=== PATIENT | male | born 1975 | race African-American/Black ===

== ENCOUNTER 2017-10-08 12:00 | Emergency (ER) | payer MEDICARE, OTHER ==
[~2017-10-08] VITALS: Ht 180.3 cm; Wt 90.5 kg
[~2017-10-08 12:00] MED LIST: BUPR100SR PO; CHOL200035 PO; CLON2 PO; DOCU250C91 PO; HYDR-3971 PO; HYDR25TA PO; KDUR20 PO; LISI-662 PO; LURA40 PO; OMEP20 PO; RANI150T7 PO; RISP2 PO; ZOLP10TA7 PO
[2017-10-08 13:44] VITALS: BP 138/88
== END 2017-10-08 15:19 | disposition home or self-care (01) ==
LOC: EMS 12:01
DX: M54.5 Low back pain (principal); M54.6 Pain in thoracic spine; G89.29 Other chronic pain; I10 Essential (primary) hypertension; F17.210 Nicotine dependence, cigarettes, uncomplicated
CPT/HCPCS: 99283

== ENCOUNTER 2020-02-09 09:36 | Emergency (ER) | payer MEDICARE, OTHER ==
[~2020-02-09] VITALS: Ht 177.8 cm; Wt 90.9 kg
[~2020-02-09 09:36] MED LIST changes: -BUPR100SR PO; -DOCU250C91 PO; -HYDR25TA PO; -KDUR20 PO; -LURA40 PO; +LURA40TA2 PO; +POTA20TA83 PO; -RANI150T7 PO; -RISP2 PO; -ZOLP10TA7 PO; +ZOLP10TA8 PO
[2020-02-09] MEDS ORDERED: METOPROLOL TARTRATE 50 MG TABLET PO ONE (11:15)
[2020-02-09] MEDS ORDERED: HYDROCODONE/ACETAMINOPHEN 5-325 MG TABLET PO ONE (11:15)
[2020-02-09] MEDS ORDERED: LISINOPRIL 10 MG TABLET PO ONE (11:15)
[2020-02-09] MEDS ORDERED: CHOL100018 PO (11:21)
[2020-02-09] MEDS ORDERED: HYDR-4069 PO (11:21)
[2020-02-09 11:49] LABS: BASOPHILS % (AUTO) 0.7 % (0.0-2.0); EOSINOPHILS % (AUTO) 5.7 % (1.0-6.0); HEMATOCRIT 41.9 % (41-53); HEMOGLOBIN 14.1 g/dL (13.5-17.5); LYMPHOCYTES # (AUTO) 1.4 K/uL (1.0-4.8); LYMPHOCYTES % (AUTO) 20.4 % (22.0-44.0); MEAN CORPUSCULAR HEMOGLOBIN 28.5 pg (26.0-34.0); MEAN CORPUSCULAR HGB CONC 33.7 G/dL (31.0-37.0); MEAN CORPUSCULAR VOLUME 85 fL (80-100); MONOCYTES # (AUTO) 0.6 K/uL (0.1-1.0); MONOCYTES % (AUTO) 7.9 % (2.0-9.0); NEUTROPHILS # (AUTO) 4.6 K/uL (1.8-7.7); NEUTROPHILS % (AUTO) 65.3 % (40.0-70.0); PLATELET COUNT (AUTO) 239 K/uL (150-450); RED BLOOD CELL COUNT(AUTO) 4.95 MIL/uL (4.50-5.90); RED CELL DISTRIBUTION WIDTH 14.6 % (11.5-14.5)
[2020-02-09 12:06] LABS: ANION GAP 8 mmol/L (8-16); CALCIUM, TOTAL 9.2 mg/dL (8.8-10.5); CARBON DIOXIDE 31 mmol/L (22-29); CHLORIDE 102 mmol/L (98-107); CREATININE 1.24 mg/dL (0.60-1.30); GLOMERULAR FILTR. RATE CALC > 60 mL/min (>60); GLUCOSE,RANDOM 101 mg/dL (70-110); POTASSIUM 3.3 mmol/L (3.5-5.1); SODIUM SERUM 141 mmol/L (136-145); UREA NITROGEN, BLOOD 20 mg/dL (7-18)
[2020-02-09 12:12] LABS: ALANINE AMINOTRANSFERASE 23 U/L (12-78); ASPARTATE AMINOTRANSFERASE 15 U/L (15-37); BILIRUBIN,TOTAL 0.7 mg/dL (0.1-1.0); CREATINE KINASE, TOTAL ONLY 125 U/L (39-308); TOTAL PROTEIN, SERUM 8.3 g/dL (6.4-8.2)
[2020-02-09 12:24] LABS: ALKALINE PHOSPHATASE 83 U/L (46-116)
[2020-02-09 13:55] VITALS: BP 150/104
== END 2020-02-09 14:38 | disposition home or self-care (01) ==
LOC: EMS 09:43
DX: I10 Essential (primary) hypertension (principal); M54.5 Low back pain; G89.29 Other chronic pain; F17.210 Nicotine dependence, cigarettes, uncomplicated; F31.9 Bipolar disorder, unspecified; Z88.6 Allergy status to analgesic agent; Z79.899 Other long term (current) drug therapy
CPT/HCPCS: 93005; 99406